=== PATIENT | male | born 1985 | race Caucasian/White ===

== ENCOUNTER 2017-03-13 11:29 | Emergency (ER) | payer SELFPAY ==
[2017-03-13 11:42] VITALS: BP 113/81
--- NOTE | 2017-03-13 11:44 | ED Physician Documentation ---
General Adult - HISTORIAN Historian: patient - HPI Stated Complaint: stated bug bite left knee Chief Complaint: General Adult Onset: days ago Timing: still present Severity: moderate Further Comments: yes (Pt is a 31 yo male with an abscess in the skin over his L knee. Pt attributes lesion to a bug bite. Sx began 3 days ago.) - ROS CONST: no problems EYES/ENT: none CVS/RESP: none GI/: none MS/SKIN/LYMPH: other (abscess over L knee) - PAST HX Past History: none Allergies/Adverse Reactions: Allergies Allergy/AdvReac Type Severity Reaction Status Date / Time No Known Allergies Allergy Verified 03/27/13 18:19 Home Medications: Ambulatory Orders Medication Instructions Recorded Baclofen [Lioresal] 10 mg PO 03/27/13 Hydrocodone Bit/Acetaminophen 1 each PO 03/27/13 [Manning 5-325 Tablet] Amoxicillin/Potassium Clav 1 each PO Q12H #20 tablet 03/13/17 [Augmentin 875Mg/125Mg] - SOCIAL HX Smoking History: non-smoker - FAMILY HX Family History: No - VITAL SIGNS Vital Signs: Vital Signs Temp Pulse Resp BP Pulse Ox 99.7 F H 69 20 113/81 97 03/13/17 11:29 03/13/17 11:29 03/13/17 11:29 03/13/17 11:29 03/13/17 11:29 - REVIEWED ASSESSMENTS Nursing Assessment Reviewed: Yes Vitals Reviewed: Yes Progress - Progress Progress: wound cx L knee abscess - pending Rx Augmentin (875/125). 1 po bid x 10 days. 1RF General Adult Physical Exam - PHYSICAL EXAM GENERAL APPEARANCE: mild distress NECK: normal inspection, supple RESPIRATORY: no resp distress, chest non-tender, breath sounds normal CVS: reg rate & rhythm, heart sounds normal ABDOMEN: soft BACK: normal inspection SKIN: other (abscess over L patella, 3 cm) EXTREMITIES: normal range of motion, no evidence of injury NEURO: oriented X3, motor nml, sensation nml Discharge Clincal Impression: abscess L knee Prescriptions: Amoxicillin/Potassium Clav [Augmentin 875Mg/125Mg] 1 each PO Q12H #20 tablet Referrals: Primary Doctor,No [REFERRING] - 2 Days Home Medications: Ambulatory Orders Baclofen [Lioresal] 10 mg PO 03/27/13 Hydrocodone Bit/Acetaminophen [Manning 5-325 Tablet] 1 each PO 03/27/13 Amoxicillin/Potassium Clav [Augmentin 875Mg/125Mg] 1 each PO Q12H #20 tablet 10/25 Condition: Good Disposition: 01 HOME, SELF-CARE Decision to Admit: NO Decision Time: 12:17
== END 2017-03-13 12:19 | disposition home or self-care (01) ==
LOC: ED 11:29
DX: L02.416 Cutaneous abscess of left lower limb (principal)
CPT/HCPCS: 87070; 99283